=== PATIENT | female | born 1985 | race Caucasian/White ===

== ENCOUNTER 2017-05-11 13:02 | Emergency (ER) | payer OTHER ==
[~2017-05-11 13:02] MED LIST: RANITIDINE 50 MG/2 ML VIAL IVP ONE; methylPREDNISolone SOD SUCC 125 MG/2 ML VIAL IVP ONE
[2017-05-11 13:09] VITALS: TEMP 97.5
--- NOTE | 2017-05-11 13:12 | EDPHY ---
H & P Stated Complaint: EATING SUSHI WITH ACUTE SOB/HIVES/TACHYCARDIA Time Seen by Provider: 05/11/17 13:05 HPI/ROS: CHIEF COMPLAINT: Possible allergic reaction HISTORY OF PRESENT ILLNESS: This patient is a 31 year old female arriving with her via private vehicle complaining of flushed skin, rapid heart rate, and headache developing immediately after eating sushi around 12:30, 45 minutes ago. She made the roll herself with ahi tuna acquired from the store today. She eats fish weekly, and has has never had similar reaction. She developed a headache first, and then became very hot and noticed her skin was bright red and her heart was pounding. She denies itching, wheezing, or difficulty breathing. She endorses possible upper airway swelling with increased saliva production. She took 50mg Benadryl at home, then her drove her here. She is currently feeling slightly better after taking the Benadryl. REVIEW OF SYSTEMS: A 10 point review of systems was performed and is negative with the exception of the elements mentioned in the history of present illness. - Personal History LMP (Females 10-55): IUD In Place Current Tetanus/Diphtheria Vaccine: Yes - Medical/Surgical History PMH: Denies Hx Asthma: No Hx Chronic Respiratory Disease: No Hx Diabetes: No Hx Cardiac Disease: No Hx Renal Disease: No Hx Cirrhosis: No Hx Alcoholism: No Hx HIV/AIDS: No Hx Splenectomy or Spleen Trauma: No Other PMH: DENIES - Social History Smoking Status: Never smoked Additional Social History: . at beside. Lives in [place]. Nonsmoker. - Physical Exam Exam: General Appearance: Alert, appears anxious Eyes: Pupils equal and round, no periorbital swelling ENT, Mouth: Mucous membranes moist, no oral swelling Neck: Normal inspection, no stridor Respiratory: Lungs are clear to auscultation, no wheezing Cardiovascular: Regular tachycardia . Neurological: A&O, nonfocal, normal gait Skin: Diffuse erythema. No hives. Extremities: No swelling Psychiatric: Mood and affect normal Constitutional: Initial Vital Signs Temperature (C) 36.4 C 05/11/17 13:06 Heart Rate 147 H 05/11/17 13:06 Respiratory Rate 26 H 05/11/17 13:06 Blood Pressure 117/69 05/11/17 13:06 O2 Sat (%) 100 05/11/17 13:06 O2 Delivery Mode Room Air Allergies/Adverse Reactions: No Known Allergies Allergy (Unverified 05/11/17 13:06) Home Medications: Medication Instructions Recorded EPINEPHRINE [EPIPEN] 0.3 mg IM ONCE #2 syr 05/11/17 predniSONE 60 mg PO DAILY #9 tab 05/11/17 Medical Decision Making ED Course/Re-evaluation: 31 year old female presents with flushed skin, tachycardia (HR 147), and headache following ingestion of ahi tuna 45 minutes prior to arrival. The patient has already taken 50mg PO Benadryl at home. Plan to administer 125mg IV Solu-Medrol, 50mg IV Ranitidine, and 0.3mg IM Epinephrine for symptom relief. I suspect the patient is experiencing Scombroid poisoning from the tuna rather than a true allergic reaction. Her headache, flushed skin, and tachycardia are consistent with this, and she has no hives, wheezing, or other elements of the general presentation of an anaphylactoid response. 13:49 Reassessed. Chest is feeling tight, headache is returning. Lungs remain clear to auscultation bilaterally. Her skin appears less flushed. Plan to administer 25mg IV Benadryl. 14:10 Feels much better, no chest tightness. Headache has resolved and skin exam is normal, no flushing. 15:21 Reassessed patient. She is feeling normal now following medication administration and rest. Plan to discharge home in good condition. She will follow up with her primary care provider and an delivery and installation subcontractor for further evaluation. She will be given a prescription for Prednisone and for an EpiPen, and will take Claritin QD and Benadryl nightly for three days. Return precautions discussed. The patient and her are comfortable with this plan. Differential Diagnosis: Differential diagnosis includes though it is not limited to laryngeal edema, bronchospasm, hypotension, angioedema. - Data Points Medications Given: Discontinued Medications Diphenhydramine HCl (Benadryl Injection) 25 mg IVP EDNOW ONE Stop: 05/11/17 13:53 Last Admin: 05/11/17 13:53 Dose: 25 mg Epinephrine HCl (Epinephrine) 0.3 mg IM EDNOW ONE Stop: 05/11/17 12:56 Last Admin: 05/11/17 13:10 Dose: 0.3 mg Methylprednisolone Sodium Succinate (Solu-Medrol) 125 mg IVP EDNOW ONE Stop: 05/11/17 12:56 Last Admin: 05/11/17 13:10 Dose: 125 mg Ranitidine HCl (Zantac) 50 mg IVP EDNOW ONE Stop: 05/11/17 12:56 Last Admin: 05/11/17 13:10 Dose: 50 mg Departure - Departure Disposition: Home, Routine, Self-Care Clinical Impression: Acute anaphylaxis, Scombroid fish poisoning Condition: Good Instructions: Epinephrine (By injection), Food Allergy (ED), Anaphylaxis (ED), General Allergic Reaction (ED) Additional Instructions: 1. Follow-up with your primary doctor this week. When symptoms have completely subsided, follow up with an delivery and installation subcontractor soon as possible to determine the cause of the allergic reaction. I suspect that you have Scombroid poisoning, as we discussed. 2. Take Claritin in the morning and Benadryl at night as directed on the packaging for the next three days. Take your Prednisone as prescribed. Use EpiPen in case of allergic emergency. 3. Return to the Emergency Department for shortness of breath, difficulty swallowing, difficulty breathing, development of rash, fever or other worsening of condition. Referrals: Sandra Derw MD [Medical Doctor] - As per Instructions Prescriptions: EPINEPHRINE [EPIPEN] 0.3 mg IM ONCE #2 syr predniSONE 60 mg PO DAILY #9 tab Report Scribed for: Joaquina Pino Report Scribed by: Lili Krueger Date of Report: 05/11/17 Time of Report: 13:12 Physician Review and Approval Statement: 05/11/17 13:12 Portions of this note were transcribed by a biomedical manager. I personally performed a history, physical exam, medical decision making, and confirmed accuracy of information the transcribed note.
[2017-05-11 13:51] VITALS: RESP 16
[2017-05-11 15:43] VITALS: BP 95/60; PULSE 101; O2SAT 96
== END 2017-05-11 15:43 | disposition home or self-care (01) ==
DX: T78.2XXA Anaphylactic shock, unspecified, initial encounter (principal); T61.11XA Scombroid fish poisoning, accidental (unintentional), initial encounter
CPT/HCPCS: 96374; J1200